=== PATIENT | male | born 1955 | race Native Hawaiian/Other Pacific Islander ===

== ENCOUNTER 2019-09-15 16:35 | Inpatient (IN) | payer OTHER, SELFPAY ==
[2019-09-15 16:45] VITALS: BMI 21.0
[2019-09-15] MEDS ORDERED: Ondansetron PF 4 MG/2 ML Vial IVP PRN (18:23)
[2019-09-15] MEDS ORDERED: hydrALAZINE 20 MG/ML VIAL SLOW IVP PRN (18:29)
[2019-09-15] MEDS ORDERED: Acetaminophen 1,000 MG in Premix Bag 1 BAG IVPB PRN (18:29)
--- NOTE | 2019-09-15 19:26 | PRG ---
DATE OF SERVICE: 09/15/2019 Mr. Mart is a 64-year-old gentleman whom I evaluated at the [facility] for altered mental status. He had a head CT performed at the [facility], which revealed multiple hyperdense lesions consistent with hemorrhage. He had a followup MRI scan performed this morning, which revealed multiple intracranial lesions consistent with what is likely hemorrhagic metastasis. He has had a CT examination performed of the chest, abdomen and pelvis, which revealed numerous pulmonary nodules, also likely consistent with metastasis. He was intubated around the time of his arrival for respiratory failure and subsequently extubated this morning. He is awake, alert, oriented, and able to answer my questions appropriately. We do not have Oncology services at the [place] location and after conferring with my Oncology colleagues in [place] and Pulmonology, we decided to transfer the patient to [facility] in [place], so that he could continue to get his care and undergo further evaluation and management with respect to what is likely a widespread metastatic disease. The plan will be admission to the Oncology floor. We will consult our Oncology services as well as our Hospitalist Service for medical management. With respect to the intracranial lesions, I do not anticipate a need for surgery at this time. They do exhibit local mass-effect, but there is no impending herniation syndrome. He will respond well, I believe, to steroids. I did speak with Dr. Santos with Oncology and he does believe we need the tissue for diagnoses. We will try to pursue one of the pulmonary nodules for the purposes of biopsy. Job ID: [id number]
[2019-09-15] MEDS: Pantoprazole 40 MG VIAL IVP SCH (20:56)
[2019-09-15] MEDS: Sodium Chloride 0.9% 1,000 ML IV SCH (20:56)
[2019-09-16] MEDS: Dexamethasone 4 MG in Sodium Chloride 0.9% 50 ML IVPB SCH ×4 (00:26→17:55)
[2019-09-16 06:51] LABS: #Lymphocytes 0.9 thou/uL (1.20-3.40); #Monocytes 0.6 thou/uL (0.11-0.59); #Neutrophils 12.1 thou/uL (1.40-6.50); %Eosinophils 0.1 % (0.0-10.0); %Lymphocytes 6.3 % (21.0-51.0); %Monocytes 4.2 % (0.0-10.0); %Neutrophils 89.5 % (42.0-75.0); Hemoglobin 9.2 g/dL (14.0-18.0); Mean Corpuscular HGB CONC 32.3 g/dL (32.0-36.0); Mean Corpuscular Hemoglobin 31.9 pg (27.0-31.0); Mean Corpuscular Volume 98.5 fL (78.0-98.0); Mean Platelet Volume 6.8 fL (7.4-10.4); Platelet Count 221 thou/uL (130-400); RBC Distribution Width 12.6 % (11.5-14.5); Red Blood Cell (RBC) Count 2.89 mill/uL (4.70-6.10); White Blood Cell (WBC) Count 13.6 thou/uL (4.8-10.8)
[2019-09-16 07:23] LABS: Anion Gap 10 mmol/L (10-20); BUN (Urea Nitrogen) 12 mg/dL (8.4-25.7); Calc. Creatinine Clearance 107 mL/min (70-130); Carbon Dioxide 23 mmol/L (23-31); Chloride 112 mmol/L (98-107); Estimated GFR-MDRD Greater than 90; Glucose 112 mg/dL (80-115); Potassium 3.8 mmol/L (3.5-5.1); Sodium 141 mmol/L (136-145)
--- NOTE | 2019-09-16 08:49 | PDOC.PALCO ---
Palliative Care Consult - Consult Details Requesting Physician: Dr Yen Reason for Consult: goals of care, advance directives assistance Family Members Present: none - Pertinent HPI 64 year old male who was initially seen at [facility], presented with altered mental status, with CT revealing hyperdense lesions that is likely hemorrhagic metastasis. The CT further identified pulmonary nodules consistent with metastasis. He was intubated, but subsequently extubated and transferred to [facility] for further evaluation and management. - Social History Smoking Status: Unknown if ever smoked Living Situation: other (Significant other who is [place]) - Medications MAR Reviewed: Yes - Allergies Allergies/Adverse Reactions: Allergies Allergy/AdvReac Type Severity Reaction Status Date / Time No Known Allergies Allergy Unverified 09/15/19 16:55 - Subjective Sleeping but arousable. ROS: 10 point review negative at this time. - Objective Vital Signs: Vital Signs - Most Recent Temp Pulse Resp BP Pulse Ox 98.4 F 55 L 14 102/58 L 92 L 09/16/19 07:45 09/16/19 07:45 09/16/19 07:45 09/16/19 07:45 09/16/19 07:45 Palliative Performance Scale: 50 - Physical Exam Constitutional: NAD HEENT: moist MMs Respiratory: unlabored breathing Cardiovascular: RRR, no significant murmur Gastrointestinal: soft, non-tender, positive bowel sounds Neurological: moves all 4 limbs Psychiatric: normal affect, A&O x 3 Skin: normal turgor - Problem List (1) Palliative care encounter Code(s): Z51.5 - ENCOUNTER FOR PALLIATIVE CARE Current Visit: Yes Status: Acute - Plan/Recommendations Plan: Initial contact. Discussed MPOA, who will be [place]. Patient waiting recommendations from oncology. Palliative care will follow offering family and patient support and assistance in goals of care in line with recent diagnosis to an otherwise healthy male. [30] minutes spent on this encounter with >50% of the time in counseling and coordination of care. Thank you for this very appropriate consult.
[2019-09-16] MEDS ORDERED: FLU VACC QS2019-20(6MOS UP)/PF 60 MCG/0.5 ML SYRINGE IM ONE (09:00)
[2019-09-16] MEDS ORDERED: Prevnar 13-Val Conj/PF 0.5 ML SYRINGE IM ONE (09:00)
[2019-09-16] MEDS: Sodium Chloride 0.9% (PF) 10 ML VIAL FS PRN (09:31)
[2019-09-16] MEDS: Nicotine 21 MG PATCH TD SCH (09:31)
[2019-09-16] MEDS: Pantoprazole 40 MG VIAL IVP SCH ×2 (09:31→20:27)
[2019-09-16] MEDS: Sodium Chloride 0.9% 1,000 ML IV SCH (12:26)
[2019-09-16] MEDS: Atorvastatin Calcium 40 MG TAB PO SCH (20:27)
--- NOTE | 2019-09-16 21:32 | HP ---
CHIEF COMPLAINT: Seizures. HISTORY OF PRESENT ILLNESS: The patient is a 64-year-old male with a history of CAD, status post 2 stents in December 2018, who initially presented to the hospital at the [facility] with seizure. He over there was intubated and then was extubated. The patient did undergo a CT head, which indicated metastatic lesions to his brain. At this time, Neurosurgery was consulted. The patient was put on IV steroids, Decadron, and also on Keppra. Due to the fact that they had no oncology services, the patient was transferred to our facility for further evaluation. The patient at the time of receiving stents stated that he had a skin lesion on his right axillary area that was excised and the patient was informed that it was melanoma. The patient was asked to follow up; however, due to insurance purposes, he was unable to do so and hence his presentation. PAST MEDICAL HISTORY: He has a history of CAD, stents x2, melanoma. PAST SURGICAL HISTORY: He has had an excision to his right chest axillary area and also CAD, stents x2. ALLERGIES: HE HAS NO KNOWN DRUG ALLERGIES. MEDICATIONS: 1. Aspirin 81 mg daily. 2. Atorvastatin 40 mg daily. 3. Clopidogrel 75 mg daily. 4. Metoprolol 25 mg daily. SOCIAL HISTORY: He is single. He lives with a partner. He does smoke a pack a day. Denies any alcohol use or drug use. He is a full code currently. FAMILY HISTORY: No history of heart disease or cancer. REVIEW OF SYSTEMS: All negative except for the ones mentioned above in the HPI. PHYSICAL EXAMINATION: VITAL SIGNS: Temperature of 98.3, pulse 67, respirations 16, O2 saturation 95% on room air, blood pressure 105/57. GENERAL: He is awake, alert, and oriented x3. Does not appear in any distress. CV: S1, S2 present. No murmurs, rubs, or gallops. LUNGS: Clear to auscultation. No rhonchi or wheezes noted. ABDOMEN: Soft and nontender. Bowel sounds are present x2. EXTREMITIES: No edema. Pedal pulses are present x2. NEUROVASCULAR: No focal deficits noted. However, he is a little slow upon answering questions. SKIN: He does have significant, I am not sure if it is a lipoma versus his lymph nodes on his left upper extremity and also back, which are palpable in nature. LABORATORY RESULTS: Sodium of 141, potassium of 3.8, BUN of 12, creatinine 0.62. WBC of , hemoglobin 9.2, hematocrit of 28.4, and platelets of 221. The patient did have a CT of chest, abdomen, and pelvis at the [facility], which indicated numerous bilateral pulmonary nodules consistent with pulmonary metastasis and also he had a CT and MRI brain, which indicated multiple hemorrhagic masses in both cerebral hemisphere and tiny hemorrhagic mass in the right cerebellum. ASSESSMENT AND PLAN: The patient is a very unfortunate 64-year-old male who presents to the hospital with seizures. 1. Metastatic, most likely melanoma. We will get a CT-guided biopsy for pathology. Also, I will consult Oncology. The patient currently is on Decadron and on antiseizure medications. 2. New-onset seizure, most likely secondary to problem #1. I will continue the Keppra and also continue Decadron. 3. Coronary artery disease. I will continue the atorvastatin and his home medications. 4. Deep venous thrombosis prophylaxis. We will put the patient on SCDs. 5. The patient's overall prognosis appears to be very poor. I am not sure if radiation therapy is an option for this patient. However, I will defer this to the oncology services. Job ID: [id number]
[2019-09-17] MEDS: Dexamethasone 4 MG in Sodium Chloride 0.9% 50 ML IVPB SCH ×4 (00:01→19:51)
[2019-09-17 05:58] LABS: PTT 35.5 SEC (22.9-36.1); Prothrombin Time 13.5 SEC (12.0-14.7)
[2019-09-17] MEDS: Sodium Chloride 0.9% 1,000 ML IV SCH ×2 (06:05→20:25)
[2019-09-17] MEDS: Clopidogrel Bisulfate 75 MG TAB PO SCH (08:22)
[2019-09-17] MEDS: Nicotine 21 MG PATCH TD SCH (09:17)
[2019-09-17] MEDS: Sodium Chloride 0.9% (PF) 10 ML VIAL FS PRN (13:07)
[2019-09-17] MEDS: Pantoprazole 40 MG VIAL IVP SCH ×2 (13:07→20:25)
[2019-09-17] MEDS ORDERED: Fentanyl 100 MCG/2 ML VIAL ONE (14:04)
[2019-09-17] MEDS ORDERED: Sodium Bicarbonate 2.5 MEQ/5 ML VIAL ONE (14:04)
[2019-09-17] MEDS ORDERED: Midazolam HCl 2 mg/2 ml Vial ONE (14:05)
--- NOTE | 2019-09-17 14:13 | PDOC.HOSPP ---
- Subjective Encounter Date: 09/17/19 Encounter Time: 11:30 Subjective: pt up in bed no complains - Objective Vital Signs & Weight: Vital Signs (12 hours) Temp Pulse Resp BP Pulse Ox 09/17/19 08:30 98.5 F 45 L 14 108/58 L 95 09/17/19 08:00 96 Weight Admit Weight 134 lb 7.7 oz Weight 134 lb 4 oz I&O: 09/16/19 09/17/19 09/18/19 06:59 06:59 06:59 Intake Total 1152019 Output Total 1999 Balance -850 1070 875 Result Diagrams: 09/16/19 06:40 09/16/19 06:40 Hospitalist ROS - Review of Systems Respiratory: denies: cough, dry, shortness of breath, hemoptysis, SOB with excertion, pleuritic pain, sputum, wheezing, other Cardiovascular: denies: chest pain, palpitations, orthopnea, paroxysmal noc. dyspnea, edema, light headedness, other Gastrointestinal: denies: nausea, vomiting, abdominal pain, diarrhea, constipation, melena, hematochezia, other - Medication Medications: Active Medications Generic Name Dose Route Start Last Admin Trade Name Freq PRN Reason Stop Dose Admin Atorvastatin Calcium 40 mg 09/16/19 21:00 09/16/19 20:27 Lipitor PO 40 mg HS JOHN Administration Clopidogrel Bisulfate 75 mg 09/17/19 09:00 09/17/19 08:22 Plavix PO Not Given DAILY JOHN Sodium Chloride 1,000 mls @ 75 mls/hr 09/15/19 18:30 09/17/19 06:05 Normal Saline 0.9% IV 1,000 mls .[id number] JOHN Administration Dexamethasone 4 mg/ Sodium 50.4 mls @ 100 mls/hr 09/15/19 23:59 09/17/19 12: 41 Chloride IVPB 50.4 mls Q6HR JOHN Administration Levetiracetam 500 mg/ Device 100 mls @ 200 mls/hr 09/15/19 21:00 09/17/19 09: 18 IVPB 100 mls BID JOHN Administration Nicotine 21 mg 09/16/19 09:00 09/17/19 09:17 Nicoderm Patch TD 21 mg DAILY JOHN Administration Pantoprazole Sodium 40 mg 09/15/19 21:00 09/17/19 13:07 Protonix IVP 40 mg Q12HR JOHN Administration Sodium Chloride 10 ml 09/15/19 18:23 09/17/19 09:18 Flush - Normal Saline IVF 10 ml PRN PRN Administration Saline Flush Sodium Chloride 10 ml 09/15/19 20:46 09/17/19 13:07 Normal Saline Pf FS 10 ml PRN PRN Administration RECONSTITUTION - Exam Neck: negative: supple, symmetric, no JVD, no thyromegaly, no lymphadenopathy, no carotid bruit, JVD Heart: negative: RRR, no murmur, no gallops, no rubs, normal peripheral pulses, irregular, diminshed peripheral pulses, murmur present, II/IV, III/IV Respiratory: negative: CTAB, no wheezes, no rales, no ronchi, normal chest expansion, no tachypnea, normal percussion, rales, rhonchi, tachypneic, wheezes Gastrointestinal: negative: soft, non-tender, non-distended, normal bowel sounds , no palpable masses, no hepatomegaly, no splenomegaly, no bruit, no guarding, no rigidity, tender to palpation, distended, diminished bowl sounds, voluntary guarding Hosp A/P (1) Metastatic melanoma Code(s): C79.9 - SECONDARY MALIGNANT NEOPLASM OF UNSPECIFIED SITE Status: Acute (2) Seizure Code(s): R56.9 - UNSPECIFIED CONVULSIONS Status: Acute (3) Brain lesion Code(s): G93.9 - DISORDER OF BRAIN, UNSPECIFIED Status: Acute - Plan pt to get biopsy of lung today. will continue steroids and keppra.
[2019-09-17] MEDS ORDERED: Fentanyl 100 MCG/2 ML VIAL SLOW IVP SCH (15:11)
[2019-09-17] MEDS ORDERED: Midazolam HCl 2 mg/2 ml Vial IM SCH (15:11)
[2019-09-17] MEDS ORDERED: Benzonatate 100 MG CAP PO PRN (15:25)
--- NOTE | 2019-09-17 15:59 | RAD ---
Chest inspiratory views HISTORY: Lung mass. Biopsy. FINDINGS: Lungs are hyperinflated. Multiple bilateral lung masses evident. No evidence of pneumothorax. Short-term follow-up is pending.
--- NOTE | 2019-09-17 16:15 | CT ---
CT-guided biopsy right lung mass Conscious sedation: At least 20 minutes were spent with the patient for conscious sedation HISTORY: Right lung mass. FINDINGS: After explaining the procedure and answering all questions, patient was initially placed ri t lateral decubitus position. He was then repositioned to supine, and a right anterolateral approach was planned to the right lung mass. Sterile technique, buffered local anesthesia, CT guidance, conscious sedation, and a right anterolate ral approach were used to carefully advance the tip of a 19-gauge trocar needle to the level of the lobular right perihilar mass. Position was confirmed with CT. A total of 5 20-gauge core biopsy specimens were obtained and eventually submitted to pathology for e valuation. Needle was removed. Hazy opacity around the lesion is consistent with a small amount of blood around the biopsy bed. Minimal loculated fluid in the major fissure. No peripheral pleural gas. Patient tolerated the procedure well and was returned in unchanged condition. IMPRESSION: Technically successful CT-guided right lung mass biopsy. Pathology is pending.
--- NOTE | 2019-09-17 16:57 | RAD ---
Chest inspiratory expiratory views HISTORY: Lung mass biopsy. FINDINGS: On the expiratory view, lucency at the right apex is noted, but the pleural line that shoul d be present for a pneumothorax is not reliably demonstrated. On the inspiratory views, the lucency is not seen. Lungs are hyperinflated. Multiple masses again seen. IMPRESSION: No pneumothorax.
[2019-09-17] MEDS: Atorvastatin Calcium 40 MG TAB PO SCH (20:25)
--- NOTE | 2019-09-17 21:02 | CON ---
DATE OF CONSULTATION: REASON FOR CONSULTATION: Brain mass. HISTORY OF PRESENT ILLNESS: Mr. Mart is a 64-year-old gentleman, who was brought to the [facility] for altered mental status and possible seizure. He required emergent intubation for respiratory distress, but was subsequently extubated. He did undergo a CT scan of his brain, which showed multiple lesions consistent with hemorrhagic metastasis. He has a right pulmonary nodule. 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 After removal of a right chest lesion, he did not follow up because he had no insurance. He has been seen by Neurosurgery and started him on Keppra and steroids. He was transferred to this facility for further workup. PAST MEDICAL HISTORY: 1. NC with stent placement. 2. History of melanoma. PAST SURGICAL HISTORY: Cardiac stent placement. ALLERGIES: NO KNOWN DRUG ALLERGIES. HOME MEDICATIONS: 1. Plavix. 2. Atorvastatin. 3. Metoprolol. 4. Aspirin. FAMILY HISTORY: No history of melanoma. SOCIAL HISTORY: Lives with a significant other, 50 plus year pack history of smoking, remote history of alcohol abuse, smokes marijuana. REVIEW OF SYSTEMS: A 10-point review of systems is negative. PHYSICAL EXAMINATION: VITAL SIGNS: Temperature 98.5, pulse is 45, respiratory rate is 14, blood pressure is 108/58. He is 95% on room air. GENERAL: This is a well-developed, well-nourished male, in no acute distress. HEENT: Normocephalic, atraumatic. Pupils are equal and reactive to light. He has poor dentition. NECK: Supple. CV: Regular rate and rhythm. LUNGS: Clear. ABDOMEN: Soft and nontender. Bowel sounds are positive. EXTREMITIES: No clubbing or cyanosis. SKIN: He has multiple raised nodules, one in his left axilla, left deltoid, right rib area. HEMATOLOGICAL: There is no petechiae or purpura. NEUROLOGICAL: The patient is alert and oriented and appropriate. PERTINENT LABS AND X-RAYS: Current WBCs are 13.6, hemoglobin 9.2, hematocrit 28.4, platelet count is 221,000, 89% neutrophils, 6% lymphocytes. PT is 13.5, INR is 1.0, and PTT is 35.5. Sodium is 141, potassium 3.8, chloride 112, CO2 is 23, BUN is 12, creatinine 0.62, calcium is 7. ASSESSMENT: 1. Metastatic disease with brain and lung nodules. 2. History of untreated melanoma. 3. Multiple upper extremity skin nodules, likely secondary to nodular melanoma. DISCUSSION: The patient has responded well to IV steroids. He is now alert and oriented. We discussed possible differential diagnosis including lung cancer and metastatic melanoma. He is having a tissue biopsy of one of his nodules today. He will at some point need radiation for his metastatic brain lesions. We will follow up with him once path results are back. Thank you for the consult. Job ID: [id number] MTDD
[2019-09-18] MEDS: Sodium Chloride 0.9% 1,000 ML IV SCH ×2 (01:07→15:28)
[2019-09-18] MEDS: Dexamethasone 4 MG in Sodium Chloride 0.9% 50 ML IVPB SCH ×5 (01:07→19:28)
[2019-09-18] MEDS: Clopidogrel Bisulfate 75 MG TAB PO SCH (09:10)
[2019-09-18] MEDS: Nicotine 21 MG PATCH TD SCH (09:10)
[2019-09-18] MEDS: Pantoprazole 40 MG VIAL IVP SCH (09:11)
[2019-09-18] MEDS ORDERED: Dexamethasone 4 MG in Sodium Chloride 0.9% 50 ML IVPB SCH (10:00)
--- NOTE | 2019-09-18 12:23 | PDOC.HOSPP ---
- Subjective Encounter Date: 09/18/19 Encounter Time: 07:00 Subjective: Pt seen for followup re: brain metastases. Says he feels better overall. - Objective Vital Signs & Weight: Vital Signs (12 hours) Temp Pulse Resp BP BP Pulse Ox 09/18/19 09:27 106/58 L 09/18/19 09:04 98 09/18/19 08:50 98.6 F 52 L 22 H 89/55 L 98 09/18/19 05:52 115/61 Weight Admit Weight 134 lb 7.712 oz Weight 134 lb 7.712 oz I&O: 09/17/19 09/18/19 09/19/19 06:59 06:59 06:59 Intake Total 2019 1924 Output Total 950 Balance 1069 1924 Result Diagrams: 09/16/19 06:40 09/16/19 06:40 Additional Labs: Labs and MARs reviewed by nc Hospitalist ROS - Review of Systems Constitutional: reports: other (insomnia) Cardiovascular: denies: chest pain, palpitations, orthopnea, paroxysmal noc. dyspnea, edema, light headedness Gastrointestinal: denies: nausea, vomiting, abdominal pain, diarrhea, constipation, melena, hematochezia - Medication Medications: Active Medications Generic Name Dose Route Start Last Admin Trade Name Freq PRN Reason Stop Dose Admin Atorvastatin Calcium 40 mg 09/16/19 21:00 09/17/19 20:25 Lipitor PO 40 mg HS JOHN Administration Clopidogrel Bisulfate 75 mg 09/17/19 09:00 09/18/19 09:10 Plavix PO 75 mg DAILY JOHN Administration Sodium Chloride 1,000 mls @ 75 mls/hr 09/15/19 18:30 09/18/19 01:07 Normal Saline 0.9% IV 1,000 mls .[id number] JOHN Administration Levetiracetam 500 mg/ Device 100 mls @ 200 mls/hr 09/15/19 21:00 09/18/19 09: 15 IVPB 100 mls BID JOHN Administration Dexamethasone 4 mg/ Sodium 50.4 mls @ 100 mls/hr 09/18/19 14:00 09/18/19 10: 03 Chloride IVPB 50.4 mls 0200,0800,1400,2000 JOHN Administration Nicotine 21 mg 09/16/19 09:00 09/18/19 09:10 Nicoderm Patch TD 21 mg DAILY JOHN Administration Pantoprazole Sodium 40 mg 09/15/19 21:00 09/18/19 09:11 Protonix IVP 40 mg Q12HR JOHN Administration Sodium Chloride 10 ml 09/15/19 18:23 09/17/19 09:18 Flush - Normal Saline IVF 10 ml PRN PRN Administration Saline Flush Sodium Chloride 10 ml 09/15/19 20:46 09/17/19 13:07 Normal Saline Pf FS 10 ml PRN PRN Administration RECONSTITUTION - Exam General Appearance: NAD Eye: anicteric sclera ENT: moist mucosa Neck: supple, no JVD Heart: RRR, no rubs Respiratory: CTAB, no wheezes Gastrointestinal: soft, non-tender Skin: no rashes Musculoskeletal: no muscle wasting Psychiatric: normal affect, normal behavior Hosp A/P (1) Brain metastases Code(s): C79.31 - SECONDARY MALIGNANT NEOPLASM OF BRAIN Status: Acute (2) Dyslipidemia Code(s): E78.5 - HYPERLIPIDEMIA, UNSPECIFIED Status: Chronic (3) HTN (hypertension) Code(s): I10 - ESSENTIAL (PRIMARY) HYPERTENSION Status: Chronic (4) Seizure Code(s): R56.9 - UNSPECIFIED CONVULSIONS Status: Resolved - Plan PT/OT, out of bed/ambulate, DVT proph w/SCDs Await pathology report. HTN controlled. Continue atorvastatin. Continue Keppar for seizures. Continue Dexamethasone. Add PRN melatonin for insomnia.
[2019-09-18] MEDS: Atorvastatin Calcium 40 MG TAB PO SCH (19:28)
[2019-09-18] MEDS: Melatonin 3 MG TAB PO PRN (22:21)
[2019-09-19] MEDS: Dexamethasone 4 MG in Sodium Chloride 0.9% 50 ML IVPB SCH ×4 (02:21→19:38)
[2019-09-19] MEDS: Sodium Chloride 0.9% 1,000 ML IV SCH ×2 (02:21→16:48)
[2019-09-19] MEDS: Clopidogrel Bisulfate 75 MG TAB PO SCH (08:36)
[2019-09-19] MEDS: Nicotine 21 MG PATCH TD SCH (08:36)
--- NOTE | 2019-09-19 16:50 | PDOC.HOSPP ---
- Subjective Encounter Date: 09/19/19 Encounter Time: 07:00 Subjective: Pt seen for followup re:brain metastases. Feels better, no complaints today. - Objective Vital Signs & Weight: Vital Signs (12 hours) Temp Pulse Resp BP Pulse Ox 09/19/19 08:20 98.4 F 51 L 16 102/64 94 L Weight Admit Weight 134 lb 7.712 oz Weight 134 lb 7.712 oz I&O: 09/18/19 09/19/19 09/20/19 06:59 06:59 06:59 Intake Total 1924 Balance 1924 Result Diagrams: 09/16/19 06:40 09/16/19 06:40 Additional Labs: Labs and MARs reviewed by wi Hospitalist ROS - Review of Systems Respiratory: denies: cough, dry, shortness of breath, hemoptysis, SOB with excertion, pleuritic pain, sputum, wheezing Cardiovascular: denies: chest pain, palpitations, orthopnea, paroxysmal noc. dyspnea, edema, light headedness - Medication Medications: Active Medications Generic Name Dose Route Start Last Admin Trade Name Freq PRN Reason Stop Dose Admin Atorvastatin Calcium 40 mg 09/16/19 21:00 09/18/19 19:28 Lipitor PO 40 mg HS JOHN Administration Clopidogrel Bisulfate 75 mg 09/17/19 09:00 09/19/19 08:36 Plavix PO 75 mg DAILY JOHN Administration Sodium Chloride 1,000 mls @ 75 mls/hr 09/15/19 18:30 09/19/19 02:21 Normal Saline 0.9% IV 1,000 mls .[id number] JOHN Administration Levetiracetam 500 mg/ Device 100 mls @ 200 mls/hr 09/15/19 21:00 09/19/19 08: 39 IVPB 100 mls BID JOHN Administration Dexamethasone 4 mg/ Sodium 50.4 mls @ 100 mls/hr 09/18/19 14:00 09/19/19 13: 22 Chloride IVPB 50.4 mls 0200,0800,1400,2000 JOHN Administration Melatonin 3 mg 09/18/19 08:50 09/18/19 22:21 Melatonin PO 3 mg HS PRN Administration Insomnia Nicotine 21 mg 09/16/19 09:00 09/19/19 08:36 Nicoderm Patch TD 21 mg DAILY JOHN Administration Pantoprazole Sodium 40 mg 09/18/19 21:00 09/19/19 08:36 Protonix PO 40 mg Q12HR JOHN Administration Sodium Chloride 10 ml 09/15/19 18:23 09/17/19 09:18 Flush - Normal Saline IVF 10 ml PRN PRN Administration Saline Flush Sodium Chloride 10 ml 09/15/19 20:46 09/17/19 13:07 Normal Saline Pf FS 10 ml PRN PRN Administration RECONSTITUTION - Exam General Appearance: NAD Eye: anicteric sclera ENT: moist mucosa Neck: supple Heart: RRR, no rubs Respiratory: CTAB Gastrointestinal: non-tender, normal bowel sounds Extremities: no cyanosis, no clubbing Skin: no rashes Psychiatric: normal affect, normal behavior Hosp A/P (1) Brain metastases Code(s): C79.31 - SECONDARY MALIGNANT NEOPLASM OF BRAIN Status: Acute (2) Dyslipidemia Code(s): E78.5 - HYPERLIPIDEMIA, UNSPECIFIED Status: Chronic (3) HTN (hypertension) Code(s): I10 - ESSENTIAL (PRIMARY) HYPERTENSION Status: Chronic (4) Seizure Code(s): R56.9 - UNSPECIFIED CONVULSIONS Status: Resolved - Plan out of bed/ambulate Likely home tomorrow after set up with oncology clinic. Pt clinically improved, await pathology report. HTN controlled. Continue atorvastatin. Continue Keppra for seizures, no recurrence of seizures. Continue Dexamethasone.
[2019-09-19] MEDS: Atorvastatin Calcium 40 MG TAB PO SCH (21:12)
[2019-09-19] MEDS: Melatonin 3 MG TAB PO PRN (22:53)
[2019-09-20] MEDS: Dexamethasone 4 MG in Sodium Chloride 0.9% 50 ML IVPB SCH ×3 (03:37→13:48)
[2019-09-20] MEDS: Sodium Chloride 0.9% 1,000 ML IV SCH (07:16)
[2019-09-20] MEDS: Clopidogrel Bisulfate 75 MG TAB PO SCH (09:04)
[2019-09-20] MEDS: Nicotine 21 MG PATCH TD SCH (09:04)
--- NOTE | 2019-09-20 14:44 | PDOC.MOPN ---
Interval History: feels well, wants to go home. Alert and oriented. - Vital Signs Vital Signs: Vital Signs (12 hours) Temp Pulse Resp BP Pulse Ox 09/20/19 08:45 98.8 F 51 L 16 99/59 L 95 09/20/19 08:00 95 Weight Admit Weight 134 lb 7.712 oz Weight 134 lb 7.712 oz - Physical Exam General: Alert, Oriented x3, No acute distress HEENT: Atraumatic, PERRLA, EOMI, Mucous membr. moist/pink Lungs: Clear to auscultation, Normal air movement Cardiovascular: Regular rate, Normal S1, Normal S2, No murmurs, Gallops, Rubs Abdomen: Normal bowel sounds, Soft, No tenderness, No hepatospenomegaly, No masses Extremities: No clubbing, No cyanosis, No edema, Normal pulses, No tenderness/ swelling Skin: No rashes, No breakdown, No significant lesion Neurological: Normal gait, Normal speech, Strength at 5/5 X4 ext, Normal tone, Sensation intact, Cranial nerves 3-12 NL, Reflexes 2+ Psych/Mental Status: Mental status NL, Mood NL - Labs Result Diagrams: 09/16/19 06:40 09/16/19 06:40 Status: lab reviewed by me A/P - Problem (1) Brain metastases Current Visit: Yes Code(s): C79.31 - SECONDARY MALIGNANT NEOPLASM OF BRAIN Status: Acute (2) Metastatic melanoma Current Visit: Yes Code(s): C79.9 - SECONDARY MALIGNANT NEOPLASM OF UNSPECIFIED SITE Status: Acute - Plan Plan: 1. Patient will go home on steroids 2. Follow-up with Radiation and Medical Oncology 3. Follow-up with financial counselors.
[2019-09-20 19:59] VITALS: BP 98/54; TEMP 98.4
--- NOTE | 2019-09-21 10:35 | DIS ---
DATE OF ADMISSION: 09/15/2019 DATE OF DISCHARGE: 09/20/2019 PRIMARY CARE PROVIDER: Unknown. DISCHARGE DIAGNOSES: 1. Brain metastasis. 2. Metastatic melanoma. 3. Seizure. CONDITION OF PATIENT ON THE DAY OF DISCHARGE: Stable. I assessed Mr. Mart on the day of discharge. He denies any chest pain or shortness of breath. Vital signs are stable. S1 and S2 are heard, regular. Lungs are clear to auscultation bilaterally. CONSULTATIONS DURING THIS HOSPITALIZATION: 1. Oncology, Leonila Mcintosh. 2. Neurosurgery, Dr. Teodoro Yen. FOLLOWUP APPOINTMENTS: The patient is advised to follow up with Radiation Oncology Service in 1 week's time and with Medical Oncology Service in 1 week's time. DISCHARGE MEDICATIONS: 1. Lipitor 40 mg daily. 2. Plavix 75 mg daily. 3. Metoprolol succinate/hydrochlorothiazide half a tablet 2 times a day. 4. Dexamethasone 4 mg 4 times a day, 120 doses to be dispensed. 5. Keppra 500 mg 2 times a day, 60 doses to be dispensed. HOSPITAL COURSE: Mr. Mart is a pleasant 64-year-old gentleman, who was admitted to [facility] on September 16, 2019, for seizure. He initially presented to [facility] with seizure. He was intubated and subsequently extubated. CT scan of the head indicated metastatic lesions to his brain. Neurosurgery was consulted, and the patient was transferred to this facility because they did not have Oncology Service. The patient underwent CT-guided biopsy of right lung mass during this hospitalization. At the time of this dictation, pathology report is pending. The patient improved with steroids. He was also started on Keppra. Medical Oncology Service will follow up with him as outpatient. He is also being referred to Radiation Oncology Service for the treatment of brain metastasis. He has also been referred to Financial Services for financial assistance. Many thanks for allowing me to participate in Mr. Mart's care. Please feel free to contact me with any questions or concerns. DISCHARGE DESTINATION: Home. TIME SPENT: Total amount of time spent coordinating this discharge: 32 minutes. Job ID: [id number]
--- NOTE | 2019-09-22 08:07 | PQF ---
[employer] View[employer]Gian bunnian ERIC HARP [id number] CLINICAL DOCUMENTATION CLARIFICATION FORM: POST DISCHARGE Addendum to original discharge summary date: ____ Late entry note date: __ DATE: 09/22/2019 ATTN:ERIC HARP Please exercise your independent, professional judgment in responding to the clarification form. Clinical indicators are provided on the bottom of this form for your review Please check appropriate box(s) to clarify if the following diagnosis has been ruled in or ruled out: Respiratory failure [ X ] Ruled in diagnosis [ ] Continue to treat [ X ] Resolved [ ] Ruled out diagnosis [ ] Cannot rule out diagnosis [ ] Other diagnosis [ ] Unable to determine In addition, please specify: Specificity : [ X ] Acute [ ] Chronic [ ] Acute on chronic [ ] unspecified For continuity of documentation, please document condition throughout progress notes and discharge summary. Thank You. CLINICAL INDICATORS - SIGNS / SYMPTOMS / LABS - Intubated around the time of his arrival for respiratory failure- Progress note, 09/15, Teodoro Weber MD - Sat: 92L- Vital signs, 09/16 - Intubation for respiratory distress- Consultation report, , Arnaldo reid APRN - Metastatic disease with brain and lung nodules- Consultation report, , Arnaldo reid APRN RISK FACTORS -Brain lesion- Hospital PN, 09/17, Sommer Bain MD TREATMENTS -Intubation-Progress note, 09/15, Teodoro Weber MD -Room air-Vital signs, 09/15 (This form is maintained as a part of the permanent medical record) [id number] [employer] [place]. All Rights Reserved Karly [employer]ine [not provided] [not provided] MTDD
== END 2019-09-20 20:46 | disposition home or self-care (01) | DRG 54 ==
LOC: ONC 16:35
PROVIDERS: ADMIT Neurological Surgery; ATTEND Internal Medicine
PROC: 0BBK3ZX Excision of Right Lung, Percutaneous Approach, Diagnostic (ICD-10-PCS; principal; 2019-09-15)
DX: C79.31 Secondary malignant neoplasm of brain (principal); J96.00 Acute respiratory failure, unspecified whether with hypoxia or hypercapnia; C49.9 Malignant neoplasm of connective and soft tissue, unspecified; C78.00 Secondary malignant neoplasm of unspecified lung; I62.9 Nontraumatic intracranial hemorrhage, unspecified; I25.10 Atherosclerotic heart disease of native coronary artery without angina pectoris; Z51.5 Encounter for palliative care; E78.5 Hyperlipidemia, unspecified; I10 Essential (primary) hypertension; R56.9 Unspecified convulsions; Z95.5 Presence of coronary angioplasty implant and graft
CPT/HCPCS: 32405; 36415; 71045; 77012; 80048; 85025; 85610; 85730; 88305; 88313; 88341; 88342; C9113; J1100; J1953; J2250; J3010